=== PATIENT | female | born 1980 | race Two or more races ===

== ENCOUNTER 2024-03-11 06:54 | Emergency (ER) | payer MEDICAID, SELFPAY ==
[2024-03-11 06:54] VITALS: PULSE 113; RESP 18; O2SAT 98; BMI 38.4
[2024-03-11 07:01] VITALS: BP 137/80; PULSE 115; RESP 20; TEMP 38.1; O2SAT 99
--- NOTE | 2024-03-11 07:04 | XR_ITS ---
Examination: PA chest single view Technique: Upright PA chest single view Exam date and time: March 11, 2024 0711 hrs. Indications: Coughing fever beginning 4 days ago. Findings: Normal heart size Mild increased markings at the right base Left lung clear Intact osseous structures Impression: Suspicious for early right base pneumonia
[2024-03-11] MEDS: ONDANSETRON ODT 4 MG TABRAP PO (07:24)
[2024-03-11] MEDS: predniSONE 20 MG TABLET 60 MG PO (07:24)
[2024-03-11] MEDS: IBUPROFEN TAB 400 MG TABLET 800 MG PO (07:25)
--- NOTE | 2024-03-11 08:15 | PD.EDURI ---
Upper Respiratory Inf. RME/HPI General Chief Complaint: Flu Like Symptoms Stated Complaint: HEADACHES, CHILLS Time Seen by Provider: 03/11/24 06:56 Arrival date/time: 03/11/24 06:54 RME / HPI RME / HPI Narrative: This section includes all my notes and documentations, including HPI, PE, and ED course. Wes Campbell MD HPI: 43-year-old female here with about 24-hour history of severe subjective fever and chills and bodyaches and malaise and cough and congestion. No other complaints. ROS: All negative except as documented in HPI. Physical Exam: General: Alert and oriented. Appearance of severe malaise noted. Eyes: Conjunctivae and lids clear. Pharynx normal. Tympanic membrane normal bilaterally. ENT: No nasal congestion. Pharynx normal. Tympanic membrane normal bilaterally. Neck: Supple. Heart: RRR. Lungs: No respiratory distress. Good air movement. No rhonchi, wheezing, rales. Abdomen: Soft and nontender. Back: No CVA tenderness. Skin: Warm and dry. Neuro: Alert and oriented X 3. I reviewed all diagnostic test results. My interpretation of the chest x-ray is equivocal infiltrates. Influenza positive. At this point, diagnoses include influenza. Treatment here included Zofran ODT 4 mg, Tamiflu 75 mg, ibuprofen 800 mg, two Tylenol #3. Significant improvement noted. Based on my best medical judgment, made decision no further evaluation or treatment indicated at this time. Patient understands and agrees to the discharge instructions customized and printed, see below. Discharge instructions from Dr. Campbell: --No physical exertion for 3 days to help rest your lungs. --No smoking and no exposure to smoking or pets or dust or cold air. --Tamiflu to kill the influenza germs. And Zithromax in case of pneumonia. --Prednisone to help decrease inflammation of the lungs. --Ibuprofen 800 mg every 8 hours today and tomorrow.? Then as needed for fever or pain. --Tylenol with codeine for severe cough or pain.? ?Increase oral fluid.? We need extra fluid when we are sick.?? --See a private doctor on 03/17/2024 if not completely better. --Seek immediate medical care with significant worsening or with any concerns. Wes Campbell MD Related Data Previous Rx's ?Medication ?Instructions ?Recorded acetaminophen 650 mg 650 mg PO Q8H PRN fever or pain 09/30/21 tablet,extended release #30 tabs ibuprofen 600 mg tablet 600 mg PO Q8H PRN fever or pain 09/30/21 #30 tabs neomycin-bacitracn Zn-polymyx 3.5 1 applicatio topical BID #15 grams 09/30/21 mg-400 unit-5,000 unit/gram top oint (Triple Antibiotic) acetaminophen 300 mg-codeine 30 mg 2 tab PO TID PRN pain #20 tabs 03/11/24 tablet azithromycin 500 mg tablet 500 mg PO QDAY 3 days #3 tabs 03/11/24 (Zithromax TRI-MEGAN) oseltamivir 75 mg capsule (Tamiflu) 75 mg PO BID 5 days #10 caps 03/11/24 prednisone 20 mg tablet 40 mg PO DAILY 3 days #6 tabs 03/11/24 Allergies Allergy/AdvReac Type Severity Reaction Status Date / Time No Known Allergies Allergy Verified 09/30/21 10:51 Course Quality Measures none Orders Category Date Time Status Bedside COVID-19 Antigen Test NOW Care 03/11/24 07:04 Completed Bedside Influenza A&B Antigen Test NOW Care 03/11/24 07:04 Completed XR chest 1V portable Stat Exams 03/11/24 07:04 Completed RSV [Respiratory Syncytial Virus Ag] Stat Lab 03/11/24 07:25 Completed Strep A Rapid Stat Lab 03/11/24 07:25 Completed ACETAMINOPHEN w/COD 300-30 [Tylenol w/Cod #3] Med 03/11/24 07:49 Discontinued 2 tab PO X1 ONE Ibuprofen Tab [Motrin Tab] Med 03/11/24 07:03 Discontinued 800 mg PO X1 ONE Ondansetron Odt [Zofran Odt] Med 03/11/24 07:03 Discontinued 4 mg PO X1 ONE Oseltamivir [Tamiflu] Med 03/11/24 08:03 Discontinued 75 mg PO X1 ONE Oseltamivir [Tamiflu] Med 03/11/24 08:25 Discontinued 75 mg PO X1 ONE predniSONE Med 03/11/24 07:03 Discontinued 60 mg PO X1 ONE Vital Signs Vital signs: Vital Signs Temperature 100.6 F H 03/11/24 07:01 Pulse Rate 115 H 03/11/24 07:01 Respiratory Rate 20 03/11/24 07:01 Blood Pressure 137/80 H 03/11/24 07:01 Pulse Oximetry (%) 99 03/11/24 07:01 Oxygen Delivery Method Room Air 03/11/24 07:01 Upper Respiratory Infection Patient data External records reviewed:: [facility] previous records Clinical information provided by:: patient Social determinants that could affect healthcare access:: none Patient has the following chronic illnesses:: None How is presenting disease/condition affected by chronic disease/condition?: no chronic disease Evaluation data The following diagnostics were reviewed and interpreted by me:: lab results and radiology exam(s) Lab and/or radiology exams considered but not ordered:: None Interpretation Summary: Influenza Medications / Prescriptions Medications or Prescriptions considered but not ordered:: None Medication administrations:: Medication Administration History Discontinued Medications Acetaminophen/Codeine Phosphate (Acetaminophen W/Cod 300-30 Tablet) 2 tab PO X1 ONE Stop: 03/11/24 07:50 Last Admin: 03/11/24 08:21 Dose: 2 tab Documented By: ALICIA Ibuprofen (Ibuprofen Tab 400 Mg Tablet) 800 mg PO X1 ONE Stop: 03/11/24 07:04 Last Admin: 03/11/24 07:25 Dose: 800 mg Documented By: Harshil Ondansetron HCl (Ondansetron Odt 4 Mg Tabrap) 4 mg PO X1 ONE; Protocol Stop: 03/11/24 07:04 Last Admin: 03/11/24 07:24 Dose: 4 mg Documented By: Harshil Oseltamivir Phosphate (Oseltamivir 75 Mg Capsule) 75 mg PO X1 ONE Stop: 03/11/24 08:04 Last Admin: 03/11/24 08:20 Dose: 75 mg Documented By: [facility] Oseltamivir Phosphate (Oseltamivir 75 Mg Capsule) 75 mg PO X1 ONE Stop: 03/11/24 08:26 Prednisone (Prednisone 20 Mg Tablet) 60 mg PO X1 ONE Stop: 03/11/24 07:04 Last Admin: 03/11/24 07:24 Dose: 60 mg Documented By: ALICIA Zofran and Tamiflu and prednisone and ibuprofen and two Tylenol #3 Consultations Consultation(s) initiated? (list below): No Diagnosis Upper Respiratory Differential Diagnosis: upper respiratory infection, croup, otitis media, sinusitis, viral infection, bronchitis, influenza, pharyngitis and other (Pneumonia and bronchitis) Most likely diagnosis given after review of the tests above:: Influenza Admission Indicated Admission indicated?: not indicated Explain why admission is indicated or not indicated:: Admission criteria not met Admission Request Was there a request for admission?: No Disposition Plan Disposition Plan: Discharge Discharge Attestation Discharge Attestation: The patient and all family members were given an opportunity to ask questions and understood the discharge instructions. Discharge instructions specifically effects, indications for sooner follow up or return to the emergency department, and the expected course of current diagnosis. Patient condition: Stable Discharge Plan Plan Patient Disposition: HOME (Self Care) Prescriptions/Referrals Prescriptions/Med Rec: New prednisone 20 mg tablet 40 mg PO DAILY 3 Days Qty: 6 0RF Taper: Prednisone Taper 20 mg DAILY for 2 Days and 0 Hour 10 mg DAILY for 2 Days and 0 Hour 5 mg DAILY for 7 Days and 0 Hour acetaminophen-codeine 300-30 mg tablet 2 tab PO TID MDD 6 PRN (Reason: pain) Qty: 20 0RF oseltamivir [Tamiflu] 75 mg capsule 75 mg PO BID 5 Days Qty: 10 0RF azithromycin [Zithromax TRI-MEGAN] 500 mg tablet 500 mg PO QDAY 3 Days Qty: 3 0RF No Action Triple Antibiotic 3.5mg-400 unit- 5,000 unit/gram ointment 1 applicatio TOPICAL BID Qty: 15 0RF acetaminophen 650 mg tablet extended release 650 mg PO Q8H PRN (Reason: fever or pain) Qty: 30 0RF Rx Instructions: swallow whole; do not chew/break/dissolve/open ibuprofen 600 mg tablet 600 mg PO Q8H PRN (Reason: fever or pain) Qty: 30 0RF Referrals: Diogo Che MD [Primary Care Provider] - In 1 week Problem List Clinical Impression: Influenza Patient/Caregiver Discharge Instructions Discharge Activity: activity as tolerated Education Materials: ED Influenza (Adult) Additional Instructions: Discharge instructions from Dr. Campbell: --No physical exertion for 3 days to help rest your lungs. --No smoking and no exposure to smoking or pets or dust or cold air. --Tamiflu to kill the influenza germs. And Zithromax in case of pneumonia. --Prednisone to help decrease inflammation of the lungs. --Ibuprofen 800 mg every 8 hours today and tomorrow.? Then as needed for fever or pain. --Tylenol with codeine for severe cough or pain.? ?Increase oral fluid.? We need extra fluid when we are sick.?? --See a private doctor on 03/17/2024 if not completely better. --Seek immediate medical care with significant worsening or with any concerns. Print Language: Greenlandic Stand Alone Forms: Arlyn Award Info., Patient Portal Info Letter
[2024-03-11 08:16] LABS: Strep A Rapid Negative (Negative)
[2024-03-11 08:18] LABS: Respiratory Syncytial Virus Ag Negative (Negative)
[2024-03-11] MEDS: OSELTAMIVIR 75 MG CAPSULE PO (08:20)
[2024-03-11] MEDS: ACETAMINOPHEN w/COD 300-30 TABLET 2 TAB PO (08:21)
== END 2024-03-11 08:33 | disposition home or self-care (01) ==
PROVIDERS: Emergency Provider Emergency Medicine; PCP Family Medicine
DX: J11.1 Influenza due to unidentified influenza virus with other respiratory manifestations (principal)
CPT/HCPCS: 71045; 87400; 87634; 87651; 87811; 99283; J7512; Q0162; A9270